=== PATIENT | female | born 1985 | race Caucasian/White ===

== ENCOUNTER 2020-10-31 10:47 | Emergency (ER) | payer OTHER, SELFPAY ==
[2020-10-31 10:56] VITALS: BP 195/91; PULSE 120; RESP 16; TEMP 36.9; O2SAT 99; BMI 24.0
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
[2020-10-31] MEDS: KETOROLAC 60 MG/2 ML VIAL 30 MG IM (11:44)
[2020-10-31] MEDS: TET,DIPH,PERTUSS(ACELL),VAC/PF 0.5 ML SYRINGE IM (11:45)
[2020-10-31] MEDS: BACITRACIN OINT 0.9 GM PCKT 1 APPLIC TOP (11:45)
[2020-10-31 11:50] VITALS: PULSE 88; O2SAT 100
[2020-10-31] MEDS: BACITRACIN OINT 0.9 GM PCKT 8 APPLIC TOP (12:54)
[2020-10-31 12:56] VITALS: BP 134/87; PULSE 86; RESP 18; O2SAT 100
== END 2020-10-31 13:09 | disposition home or self-care (01) ==
PROVIDERS: Emergency Provider Nurse Practitioner
DX: T24.212A Burn of second degree of left thigh, initial encounter (principal); T31.0 Burns involving less than 10% of body surface; X03.0XXA Exposure to flames in controlled fire, not in building or structure, initial encounter; Z23 Encounter for immunization
CPT/HCPCS: 90471; 96372; 99281; 99283; 90715; J1885

== ENCOUNTER → 2020-12-26 18:33 | Outpatient (CLI) | payer OTHER, SELFPAY | PROVIDERS: Visit Provider Physician Assistant | DX: L03.116 Cellulitis of left lower limb (principal) | CPT/HCPCS: 87070; 87075; 87077; 87186; 87205 ==